=== PATIENT | female | born 1960 | race Caucasian/White ===

== ENCOUNTER → 2020-09-10 09:11 | Outpatient (CLI) | payer OTHER, SELFPAY ==
[2020-09-10 10:19] LABS: COVID19 -Nasal RAPID Negative (Negative)
== END ==
PROVIDERS: Referring Provider Surgery; Visit Provider Surgery
DX: Z20.822 Contact with and (suspected) exposure to COVID-19 (principal)
CPT/HCPCS: 87635; C9803

== ENCOUNTER 2020-09-11 12:44 | Day surgery (SDC) | payer OTHER, SELFPAY ==
[2020-09-11] VITALS (7 sets, daily range): BP systolic 101–124; BP diastolic 67–75; PULSE 66–90; RESP 12–18; TEMP 36.6–37.3; O2SAT 91–99; BMI 38.7
[2020-09-11] MEDS: LACTATED RINGERS 1,000 ML 200 ML IV (13:04)
--- NOTE | 2020-09-11 13:57 | PM.HP.1 ---
History of Present Illness History of Present Illness Date Patient Seen: 09/11/20 Time Patient Seen: 13:57 Chief complaint: SDC Narrative: The patient presents for colorectal sreening. Third colonoscopy, previous 5 years ago normal. Mother has history of colon cancer. No personal history of colon cancer. On further history denies any recent gastrointestinal symptoms. No nausea, vomiting, abdominal pain, loss of appetite, unexplained weight loss, change in bowel habits, diarrhea, constipation, melena, hematochezia, or bright red blood per rectum. Patient History Medical History Hypertension Surgical History Hx of cholecystectomy Hx of oral surgery Hx of tonsillectomy Tubal ligation status Family & Social History Social History: household members spouse Tobacco & Substance use: Smoking Status Never smoker alcohol intake current alcohol intake frequency holiday/special occasion Substance Use Type does not use Meds Home Medications and Allergies Home Medications Medication Instructions Recorded Confirmed Type lisinopril 40 mg tablet 40 mg PO DAILY 09/11/20 09/11/20 History Allergies Allergy/AdvReac Type Severity Reaction Status Date / Time walnut [WALNUT] Allergy Intermediate TONGUE Verified 09/11/20 13:03 SWELL AND ITCH Exam Vital Signs (past 8 hours): - 09/11/20 13:11 Temperature 99.1 F Pulse Rate 87 Respiratory Rate 16 Blood Pressure 111/75 Pulse Oximetry 99 Oxygen Delivery Method Room Air Narrative Exam Narrative: GENERAL-well developed adult female, no acute distress HEENT-no scleral icterus, hearing intact NECK-no JVD, trachea midline CVS- regular rate, no peripheral edema RESP-unlabored respiratory effort, no audible wheezing GI-soft, nontender nondistended MSK-no cyanosis or clubbing, extremities without deformity SKIN-warm, dry NEURO-alert and oriented, no focal deficits PYSCH-Appropriate mood and affect Assessment & Plan Assessment & Plan narrative: The patient requires colorectal screening and colonoscopy is recommended. Technical details were discussed. Risks, benefits, alternatives explained. Risks including but not limited to myocardial infarction, aspiration, bleeding, pain, missed lesion, incomplete examination, need for further radiographic studies, colonic perforation, and need for major abdominal surgery were discussed. All questions were answered to their satisfaction, and they are in agreement with this plan.
[2020-09-11] MEDS: MIDAZOLAM 5 MG/5 ML VIAL IV (14:03)
[2020-09-11] MEDS: fentaNYL 250 MCG/5 ML INJ IV (14:04)
--- NOTE | 2020-09-11 14:22 | PM.OP.ENDO ---
Operative Date/Time/Diagnoses Date of procedure: 09/11/20 Time of procedure: 14:22 Pre-op diagnosis: family history of colon cancer Post-op diagnosis: same Procedure & Clinicians Study performed: colonoscopy Same procedure as scheduled: Yes Indications: family history of colon cancer Surgeon: Ant Murillo Procedure Notes Procedure in detail: Medications: Conscious sedation using 5mg IV midazolam and 150mcg IV of fentanyl The history and physical was performed/updated and the patient is ASA class is 2. The procedure was discussed in detail with the patient. Potential risks complications including infection, bleeding, missed diagnosis, perforation, need for surgery, and were explained. Their questions were answered and informed consent was obtained. Patient was brought to the procedure room and placed standard monitoring equipment. The patient's vital signs were monitored continuously throughout the entire procedure. Prior to starting time-out was performed. The patient was placed in the left lateral recumbent position. Procedural sedation was administered. Examination began with a thorough inspection of the perianal area there was no evidence of fissures, fistulae, external hemorrhoids or cutaneous malignancy. The colonoscopy scope was then placed into the anal canal and was advanced to the cecum, which was identified by the ileocecal valve, the appendiceal orifice and the confluence of the taenia. The scope was then slowly withdrawn examining colon thoroughly in all directions, irrigating it of any residual stool. FINDINGS 1. No masses or polyps 2. Sigmoid diverticulosis 3. Grade 1 internal hemorrhoids with The patient tolerated the procedure well. They will be discharged once criteria are met. The prep was of good/excellent quality. The withdrawl time was 7 minutes. The sedation time was 20 minutes. Specimen(s): none sent Complications: none Impression: Normal colonoscopy Post-procedure Recommendations: Colonscopy in 5 years Disposition: same day surgery
--- NOTE | 2020-09-11 15:29 | SUR.PHASEII ---
Assumed care from SARA Delgado pt ready to go, belly soft,tolerated fluids, left unit in stable condition.
== END 2020-09-11 15:15 | disposition home or self-care (01) ==
PROVIDERS: PCP Physician Assistant; Referring Provider Surgery; Visit Provider Surgery
PROC: 0DJD8ZZ Inspection of Lower Intestinal Tract, Via Natural or Artificial Opening Endoscopic (ICD-10-PCS; CPT 45378; principal; 2020-09-11 14:30)
DX: Z12.11 Encounter for screening for malignant neoplasm of colon (principal); I10 Essential (primary) hypertension; Z80.0 Family history of malignant neoplasm of digestive organs; K57.30 Diverticulosis of large intestine without perforation or abscess without bleeding; K64.0 First degree hemorrhoids
CPT/HCPCS: 45378; 99152; J2250; J3010